=== PATIENT | female | born 1980 | race Caucasian/White ===

== ENCOUNTER 2020-08-08 17:47 | Emergency (ER) | payer BC ==
[2020-08-08 18:26] VITALS: BP 137/93
--- NOTE | 2020-08-08 19:03 | ER Document Report ---
ED Medical Screen (RME) - General Chief Complaint: Palpitations Stated Complaint: HEART PALPITATIONS Time Seen by Provider: 08/08/20 18:54 Mode of Arrival: Ambulatory Information source: Patient - HPI Patient complains to provider of: palpitations Onset: Yesterday Notes: 08/08/20 19:02 Patient states she has had feeling of irregular heartbeat since last night. She states that her apple watch buzzed which woke her up. When she woke up she noticed that her heart felt out of rhythm. She looked at her watch, states that she was in an irregular rhythm. She continued to have that sensation all day. She states she had one episode of feel like she was going to pass out this morning. She denies feeling that way now. She complains of chest heaviness and mild shortness of breath. No history of A. fib. She denies hypertension, high cholesterol, diabetes, CAD. She denies any excessive stimulant use. She states that she takes vitamins only. Exam: Nontoxic, no distress. Lungs clear and equal throughout. Irregular rhythm, no murmur. No leg swelling. An initial examination was made on the patient as part of the triage process, and it was determined a more comprehensive evaluation was necessary. Initial labs were ordered and patient was transferred to another provider in the ED who assumed care and finished evaluation and plan. - Related Data Allergies/Adverse Reactions: acetaminophen [From Vicodin] Adverse Reaction (Verified 08/08/20 18:51) hydrocodone [From Vicodin] Adverse Reaction (Verified 08/08/20 18:51) Physical Exam - Vital signs Vitals: Temp Pulse Resp BP Pulse Ox 97.9 F 89 20 137/93 H 99 08/08/20 18:25 08/08/20 18:25 08/08/20 18:25 08/08/20 18:25 08/08/20 18:25 Course - Vital Signs Vital signs: Temp Pulse Resp BP Pulse Ox 97.9 F 89 20 137/93 H 99 08/08/20 18:25 08/08/20 18:25 08/08/20 18:25 08/08/20 18:25 08/08/20 18:25
--- NOTE | 2020-08-08 19:35 | RADIOLOGY REPORT (SQ) ---
EXAM DESCRIPTION: CHEST 2 VIEWS IMAGES COMPLETED DATE/TIME: 08/08/2020 7:23 pm REASON FOR STUDY: palpitations, new onset a-fib COMPARISON: None. EXAM PARAMETERS: NUMBER OF VIEWS: two views TECHNIQUE: Digital Frontal and Lateral radiographic views of the chest acquired. RADIATION DOSE: NA LIMITATIONS: none FINDINGS: LUNGS AND PLEURA: No opacities, masses or pneumothorax. No pleural effusion. MEDIASTINUM AND HILAR STRUCTURES: No masses or contour abnormalities. HEART AND VASCULAR STRUCTURES: Heart normal size. No evidence for failure. BONES: No acute findings. HARDWARE: None in the chest. OTHER: No other significant finding. IMPRESSION: NO ACUTE RADIOGRAPHIC FINDING IN THE CHEST. TECHNICAL DOCUMENTATION: JOB ID: [id number] [email or web address]- All Rights Reserved Reading location - IP/workstation name: [email or web address]
[2020-08-08 19:36] LABS: ABSOLUTE BASOPHILS # (AUTO) 0.1 10^3/uL (0.0-0.2); ABSOLUTE EOSINOPHILS # (AUTO) 0.1 10^3/uL (0.0-0.6); ABSOLUTE LYMPHOCYTES (AUTO) 1.6 10^3/uL (0.5-4.7); ABSOLUTE MONOCYTES (AUTO) 0.6 10^3/uL (0.1-1.4); ABSOLUTE NEUT (AUTO) 4.5 10^3/uL (1.7-8.2); BASOPHILS % (AUTO) 0.9 % (0-2); EOSINOPHILS % (AUTO) 1.9 % (0-6); HEMATOCRIT 40.2 % (36.0-47.0); HEMOGLOBIN 13.8 g/dL (12.0-15.5); LYMPHOCYTES % (AUTO) 23.5 % (13-45); MEAN CORPUSCULAR HEMOGLOBIN 30.3 pg (27.0-33.4); MEAN CORPUSCULAR HGB CONC 34.2 g/dL (32.0-36.0); MEAN CORPUSCULAR VOLUME 88 fl (80-97); MONOCYTES % (AUTO) 8.2 % (3-13); PLATELET COUNT 203 10^3/uL (150-450); RED BLOOD COUNT 4.55 10^6/uL (3.72-5.28); RED CELL DISTRIBUTION WIDTH 12.9 % (11.5-14.0); SEGMENTED NEUTROPHILS % (AUTO) 65.5 % (42-78); TOTAL CELLS COUNTED % (AUTO) 100 %; WHITE BLOOD COUNT 6.8 10^3/uL (4.0-10.5)
[2020-08-08 19:53] LABS: INTERNATIONAL RATION (INR) 0.97; PROTHROMBIN TIME 13.1 SEC (11.4-15.4)
[2020-08-08 19:54] LABS: PARTIAL THROMBOPLASTIN TIME 36.4 SEC (23.5-35.8)
[2020-08-08 19:56] LABS: ALBUMIN 4.7 g/dL (3.5-5.0); ALKALINE PHOSPHATASE 70 U/L (38-126); ANION GAP 8 (5-19); ASPARTATE AMINO TRANSFERASE 29 U/L (14-36); BILIRUBIN,DIRECT 0.1 mg/dL (0.0-0.4); BILIRUBIN,TOTAL 0.9 mg/dL (0.2-1.3); BLOOD UREA NITROGEN 8 mg/dL (7-20); CALCIUM 9.5 mg/dL (8.4-10.2); CARBON DIOXIDE 29 mmol/L (22-30); CHLORIDE 104 mmol/L (98-107); CREATINE KINASE 62 U/L (30-135); GLUCOSE 94 mg/dL (75-110); POTASSIUM 3.9 mmol/L (3.6-5.0)
[2020-08-08 20:08] LABS: CREATINE KINASE MB 0.58 ng/mL (<4.55)
[2020-08-08 20:13] LABS: TROPONIN I < 0.012 ng/mL
--- NOTE | 2020-08-09 10:34 | EKG REPORT ---
SEVERITY:- ABNORMAL ECG - WANDERING PACEMAKER, CAN NOT ATRIAL FIBRILLATION, REC REPEAT EKG BORDERLINE T ABNORMALITIES, ANT-LAT LEADS : Confirmed by: Cristiane Del Toro 09-Aug-2020 10:33:52
== END 2020-08-09 00:51 | disposition left against medical advice (07) ==
LOC: ER 17:47
DX: I49.9 Cardiac arrhythmia, unspecified (principal); Z53.20 Procedure and treatment not carried out because of patient's decision for unspecified reasons
CPT/HCPCS: 36415; 71046; 80053; 82550; 82553; 83735; 84484; 85025; 85610; 85730; 93005; 93010; 99281

== ENCOUNTER 2020-08-09 13:26 | Emergency (ER) | payer BC ==
--- NOTE | 2020-08-09 13:56 | ER Document Report ---
ED Medical Screen (RME) - General Chief Complaint: Palpitations Stated Complaint: PALPITATIONS Time Seen by Provider: 08/09/20 13:44 - HPI Notes: 08/09/20 13:52 40-year-old female presents to the emergency room today for heart palpitations, chest heaviness and shortness of breath that comes intermittently for the last 2 days. Patient also reports some dizziness when she stands up from a seated position. She wears an apple watch and she had 4 alerts throughout the night that her heart rate ranged from 165 bpm to 50 bpm. Denies any history of any thyroid issues or cardiac issues. Patient does vape, takes [id number] vitamins. Reports her father did have an CT with stents in his early 50s. Denies any radiation of chest pressure, denies any nausea vomiting diarrhea, denies any neck back or arm pain. I have greeted and performed a rapid initial assessment of this patient. A comprehensive ED assessment and evaluation of the patient, analysis of test results and completion of the medical decision making process will be conducted by additional ED providers. PHYSICAL EXAMINATION: GENERAL: Well-appearing, well-nourished and in no acute distress. NECK: Normal range of motion CV: s1, s2 regular LUNGS: No respiratory distress The patient was evaluated during a global COVID-19 pandemic and that diagnosis was suspected/considered upon their initial presentation. Their evaluation, treatment and testing was consistent with current guidelines for patients who present with complaints or symptoms and may be related to COVID-19. 08/09/20 13:56 - Related Data Allergies/Adverse Reactions: acetaminophen [From Vicodin] Adverse Reaction (Verified 08/08/20 18:51) hydrocodone [From Vicodin] Adverse Reaction (Verified 08/08/20 18:51) Physical Exam - Vital signs Vitals: Temp Pulse Resp BP Pulse Ox 97.4 F 104 H 18 132/86 H 99 08/09/20 13:38 08/09/20 13:38 08/09/20 13:38 08/09/20 13:38 08/09/20 13:38 Course - Vital Signs Vital signs: Temp Pulse Resp BP Pulse Ox 97.4 F 104 H 18 132/86 H 99 08/09/20 13:38 08/09/20 13:38 08/09/20 13:38 08/09/20 13:38 08/09/20 13:38
[2020-08-09] MEDS ORDERED: DILTIAZEM HCL INJ 25 MG/5 ML VIAL IV ONE (14:22)
[2020-08-09] MEDS ORDERED: DILTIAZEM HCL/D5W 125 MG/125 ML RTUINJ IV PRN (14:22)
--- NOTE | 2020-08-09 14:26 | ER Document Report ---
ED General - General Chief Complaint: Chest Pain Stated Complaint: PALPITATIONS Time Seen by Provider: 08/09/20 13:44 - HPI Notes: Patient is a 40-year-old female with no significant medical history presents to the emergency department for evaluation of palpitations, intermittent chest tightness and shortness of breath. She states has been happening frequently over the last 48 hours, has become steady since last night. She describes an intermittent chest tightness that she describes as substernal. It only last for a few seconds. It does not radiate. She has had some shortness of breath where she feels like "I just got done with a run and cannot catch my breath." She denies any associated nausea, diaphoresis, near syncope. Her palpitations have been continual. Patient drinks only one 20 ounce bottle of Mountain Dew daily, drinks no other caffeinated beverages. - Related Data Allergies/Adverse Reactions: acetaminophen [From Vicodin] Adverse Reaction (Verified 08/08/20 18:51) hydrocodone [From Vicodin] Adverse Reaction (Verified 08/08/20 18:51) Home Medications: MVI Past Medical History - General Information source: Patient - Social History Smoking Status: Current Every Day Smoker - Vape Chew tobacco use (# tins/day): No Frequency of alcohol use: None Drug Abuse: None Family History: CAD, Thyroid Disfunction Past Surgical History: Reports: Hx Breast Surgery - Augmentation, Hx Section, Hx Tonsillectomy, Other - Nasal surgery Review of Systems - Review of Systems Constitutional: No symptoms reported EENT: No symptoms reported Cardiovascular: See HPI Respiratory: See HPI Gastrointestinal: No symptoms reported Genitourinary: No symptoms reported Musculoskeletal: No symptoms reported Skin: No symptoms reported Neurological/Psychological: No symptoms reported Physical Exam - Vital signs Vitals: Temp Pulse Resp BP Pulse Ox 97.4 F 104 H 18 132/86 H 99 08/09/20 13:38 08/09/20 13:38 08/09/20 13:38 08/09/20 13:38 08/09/20 13:38 - Notes Notes: Vital signs reviewed, please refer to chart. Head is normocephalic, atraumatic. Pupils equal round, reactive to light. Neck is supple without meningismus. Heart is irregularly irregular, tachycardic. Lungs are clear to auscultation bilaterally. Abdomen is soft, nontender, normoactive bowel sounds throughout. Extremities without cyanosis, clubbing. Posterior calves are nontender. Peripheral pulses are equal. Skin is warm and dry. Patient is awake, alert, neurological exam is nonfocal. Course - Re-evaluation Re-evalutation: 08/09/20 14:26 Patient presents emergency department for evaluation. She was initially seen through triage and noted to have a heart rate in the 130s and was found to be in new onset atrial fibrillation. She was brought back to the room. Placed on a cafeteria monitor, IV has been ordered to be established. Lab work is ordered as well, including thyroid functions. We will start the patient on Cardizem, assess for response. 08/09/20 16:18 Patient's laboratory investigations are largely unremarkable. Normal TSH, normal cardiac enzymes. She was given a 20 mg Cardizem push and is now on a drip at 5 mg an hour. Her heart rate has been between 85 and 115. Her current blood pressure is 93/60 and her only symptom is a mild headache. I will discussed this case with Dr. Christopher. 08/09/20 16:29 Patient was discussed with Dr. Christopher. He agrees that this patient is low risk, does not need anticoagulation at this time, and would be a good candidate for outpatient management. We will give her a dose of Toprol-XL here. We will write her a prescription for same. She is also to start aspirin 81 mg daily. She will follow up with him in the office. This was all discussed with the patient and she is amenable as well. She is to return to the ED with worsening. - Vital Signs Vital signs: Temp Pulse Resp BP Pulse Ox 97.4 F 104 H 20 102/70 100 08/09/20 13:38 08/09/20 13:38 08/09/20 15:01 08/09/20 15:00 08/09/20 15:00 - Laboratory Results Result Diagrams: 08/09/20 14:23 08/09/20 14:23 Laboratory Results Interpreted: 08/09/20 14:23 BUN 6 L Critical Laboratory Results Reviewed: No Critical Results - Radiology Results Critical Radiology Results Reviewed: No Critical Results Discharge - Discharge Clinical Impression: Rapid atrial fibrillation Condition: Stable Disposition: HOME, SELF-CARE Instructions: Aspirin (Cardiac) ([facility]), Atrial Fibrillation ([facility]) Additional Instructions: Your findings today are consistent with atrial fibrillation. Please take Toprol-XL and aspirin as directed, starting tomorrow. You are to start aspirin 81 mg daily. Watch caffeine consumption as well, as this can contribute to this condition. Follow-up with Dr. Christopher in the office, they will contact you for an appointment, or you can call them to schedule an appointment to be seen this week. If you develop chest pain, difficulty breathing, difficulty seeing, speaking, swallowing, difficulty speaking, or difficulty moving an arm and/or leg, you should return immediately to the emergency department for further evaluation.
[2020-08-09] MEDS ORDERED: DILTIAZEM HCL INJ 25 MG/5 ML VIAL ONE (14:31)
[2020-08-09] MEDS ORDERED: DILTIAZEM HCL/D5W 125 MG/125 ML RTUINJ IV ONE (14:39)
[2020-08-09 14:52] LABS: ABSOLUTE LYMPHOCYTES (AUTO) 1.2 10^3/uL (0.5-4.7); ABSOLUTE MONOCYTES (AUTO) 0.4 10^3/uL (0.1-1.4); ABSOLUTE NEUT (AUTO) 3.7 10^3/uL (1.7-8.2); BASOPHILS % (AUTO) 0.7 % (0-2); EOSINOPHILS % (AUTO) 0.6 % (0-6); HEMATOCRIT 38.5 % (36.0-47.0); HEMOGLOBIN 13.4 g/dL (12.0-15.5); LYMPHOCYTES % (AUTO) 21.6 % (13-45); MEAN CORPUSCULAR HEMOGLOBIN 30.7 pg (27.0-33.4); MEAN CORPUSCULAR HGB CONC 34.7 g/dL (32.0-36.0); MEAN CORPUSCULAR VOLUME 88 fl (80-97); MONOCYTES % (AUTO) 7.9 % (3-13); PLATELET COUNT 180 10^3/uL (150-450); RED BLOOD COUNT 4.36 10^6/uL (3.72-5.28); RED CELL DISTRIBUTION WIDTH 13.3 % (11.5-14.0); SEGMENTED NEUTROPHILS % (AUTO) 69.2 % (42-78); TOTAL CELLS COUNTED % (AUTO) 100 %; WHITE BLOOD COUNT 5.3 10^3/uL (4.0-10.5)
[2020-08-09 15:15] LABS: ALBUMIN 4.4 g/dL (3.5-5.0); ALKALINE PHOSPHATASE 58 U/L (38-126); ANION GAP 7 (5-19); ASPARTATE AMINO TRANSFERASE 21 U/L (14-36); BILIRUBIN,TOTAL 0.9 mg/dL (0.2-1.3); BLOOD UREA NITROGEN 6 mg/dL (7-20); CALCIUM 9.6 mg/dL (8.4-10.2); CARBON DIOXIDE 26 mmol/L (22-30); CHLORIDE 107 mmol/L (98-107); GLUCOSE 100 mg/dL (75-110); POTASSIUM 3.6 mmol/L (3.6-5.0); TOTAL PROTEIN 7.4 g/dL (6.3-8.2)
[2020-08-09] MEDS ORDERED: ASPIRIN 81 MG TABLET, CHEWABLE PO ONE (16:31)
[2020-08-09] MEDS ORDERED: METOPROLOL SUCCINATE 25 MG TAB.SR.24H PO ONE (16:31)
[2020-08-09 17:00] VITALS: BP 115/83
--- NOTE | 2020-08-10 00:47 | EKG REPORT ---
SEVERITY:- ABNORMAL ECG - ATRIAL FIBRILLATION, V-RATE 109-181 MULTIFORM VENTRICULAR PREMATURE COMPLEXES : Confirmed by: Cristiane Del Toro 10-Aug-2020 00:46:09
== END 2020-08-09 17:13 | disposition home or self-care (01) ==
LOC: ER 13:26
DX: I48.91 Unspecified atrial fibrillation (principal); R07.9 Chest pain, unspecified; R00.2 Palpitations; R06.02 Shortness of breath; F17.290 Nicotine dependence, other tobacco product, uncomplicated; Z88.6 Allergy status to analgesic agent
CPT/HCPCS: 93005; 99284; 96375; 96365; 96366; 36415; 84702; 84443; 85025; 80053; 84484; 93010; J3490 ×2